=== PATIENT | female | born 1945 | race Two or more races ===

== ENCOUNTER 2025-02-28 13:02 | Emergency (ER) | payer OTHER, MEDICAID ==
[~2025-02-28] VITALS: Ht 149.9 cm; Wt 50.0 kg
[~2025-02-28 13:02] MED LIST: ALEN70TA74 PO; ASPI-325 PO; ATOR20TA50 PO; HYDR200T36 PO; HYDR50TA47 PO; LEFL10TA17 PO; LORA-483 PO; LUBI24CA12 PO; METF-372 PO; METO1TAB9 PO; OMEP-448; [UNRECOGNIZED DRUG - CODE]
--- NOTE | 2025-02-28 13:33 | ED.PDOC ---
Ezekiel. trauma (HPI) HPI Comments 79 y/o F, BIBA, with PMHx of HTN, DM, and HLD presents to the ED for CC of s/p fall. EMS reports, patient is coming from home where she suffered a fall landing on her left shoulder and left wrist. Patient complains, of current pain to her left shoulder and let wrist as result to trauma. Patient denies head injury, l oss of conciseness, abrasions, or open wounds. No other symptoms or modifying factors present at this time. Chief Complaint: Fall Injury Time Seen by MD: 13:00 Primary Care Provider: UNKNOWN Reviewed notes: Nurses Notes, Heel Brusher Notes, Medications, Allergies Allergies: Coded Allergies: NO KNOWN ALLERGIES (Unverified , 05/30/24) Home Meds Reported Medications Atorvastatin Calcium (ATORVASTATIN CALCIUM) 20 Mg Tab, 1 TAB PO DAILY 06/01/24 Omeprazole (Omeprazole Dr) 40 Mg Cap 06/01/24 Lubiprostone (Lubiprostone) 24 Mcg Cap, CAP PO 06/01/24 Leflunomide (Leflunomide) 10 Mg Tab, 1 TAB PO DAILY 06/01/24 Hydroxychloroquine Sulfate (Hydroxychloroquine Sulfat) 200 Mg Tab, 1 TAB PO DAILY 06/01/24 Aspirin (Aspirin Low Dose) 81 Mg Tab, 1 TAB PO DAILY 06/01/24 Metoprolol Succinate (Metoprolol Succinate Er) 100 Mg Tab, 1 TAB PO DAILY 06/01/24 Metformin Hydrochloride (Metformin Hcl) 1,000 Mg Tab, 1 TAB PO BID 06/01/24 Hydralazine Hcl (Hydralazine Hcl) 50 Mg Tab, 1 TAB PO TID 06/01/24 Insulin Pen Needle (Trueplus 5-Bevel Pen Need 32G X 4 mm) 1 Mis Mis 06/01/24 Loratadine (CLARITIN TABLET) 10 Mg Tb, 1 TAB PO DAILY 06/01/24 Alendronate Sodium (Alendronate Sodium) 70 Mg Tab, 1 TAB PO QWEEKLY 06/01/24 Information Source: Patient, Emergency Med Personnel Mode of Arrival: EMS Severity: Moderate Timing: Hours Duration: Since onset Prehospital treatment: None Location: (L) Shoulder, (L) Wrist Location of laceration: None Mechanism: Fall Associated signs and symtoms: None Past Medical History PAST MEDICAL HISTORY: DM, High Lipids, HTN Surgical History: 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 History Family History Family History: Reviewed,noncontributory to illness, No family hx of Cancer, No family hx of DM, No family hx of Heart mira, No family hx of HTN, No family hx ofKidney mira, No family hx of Liver mira, No family hx of Lung mira, No family hx of Stroke Social History Smoker: Non-Smoker Alcohol: Denies ETOH Use Drugs: Denies Drug Use Lives In: Home Constitutional: denies: chills, diaphoresis, fatigue, fever, malaise, sweats, weakness, others EENTM: denies: blurred vision, double vision, ear bleeding, ear discharge, ear drainage, ear pain, ear ringing, eye pain, eye redness, hearing loss, mouth pain, mouth swelling, nasal discharge, nose bleeding, nose congestion, nose pain, photophobia, tearing, throat pain, throat swelling, voice changes, others Respiratory: denies: cough, hemoptysis, orthopnea, SOB at rest, shortness of breath, SOB with excertion, stridor, wheezing, others Cardiovascular: denies: chest pain, dizzy spells, diaphoresis, Dyspnea on exertion, edema, irregular heart beat, left arm pain, lightheadedness, palpitations, PND, syncope, others Gastrointestinal: denies: abdomen distended, abdominal pain, blood streaked bowels, constipated, diarrhea, dysphagia, difficulty swallowing, hematemesis, melena, nausea, poor appetite, poor fluid intake, rectal bleeding, rectal pain, vomiting, others Genitourinary: denies: abnormal vagina bleeding, burning, dyspareunia, dysuria, flank pain, frequency, hematuria, incontinence, pain, , vagina discharge, urgency, others Neurological: denies: dizziness, fainting, headache, left sided numbness, left sided weakness, numbness, paresthesia, pre-existing deficit, right sided numbness, right sided weakness, seizure, speech problems, tingling, tremors, weakness, others Musculoskeletal: reports: others (LEFT SHOULDER AND LEFT WRIST PAIN); denies: back pain, gout, joint pain, joint swelling, muscle pain, muscle stiffness, neck pain Integumetry: denies: bruises, change in color, change in hair/nails, dryness, laceration, lesions, lumps, rash, wounds, others Allergic/Immunocompromised: denies: Difficulty Healing, Frequent Infections, Hives, Itching, others Hematologic/Lymphatic: denies: anemia, blood clots, easy bleeding, easy bruising, swollen glands, others Endocrine: denies: excessive hunger, excessive sweating, excessive thirst, excessive urination, flushing, intolerance to cold, intolerance to heat, unexplained weight gain, unexplained weight loss, others Psychiatric: denies: anxiety, bipolar disorder, depression, hopeless, panic disorder, schizophrenia, sleepless, suicidal, others All Other Systems: Reviewed and Negative Physical Exam General Appearance: Mild Distress HEENT: Normal ENT Inspection, Pharynx Normal, TMs Normal Neck: Full Range of Motion, Non-Tender, Normal, Normal Inspection Respiratory: Chest Non-Tender, Lungs Clear, No Accessory Muscle Use, No Respiratory Distress, Normal Breath Sounds Cardiovascular: No Edema, No JVD, No Murmur, No Gallop, Normal Peripheral Pulses, Regular Rate/Rhythm Breast Exam: Deferred Gastrointestinal: No Organomegaly, Non Tender, No Pulsatile Mass, Normal Bowel Sounds, Soft Genitalia: Deferred Pelvic: Deferred Rectal: Deferred Extremities: No calf tenderness, Normal capillary refill, No pedal edema Musculoskeletal : Location: Left Extremity Location: Wrist Apperance: Swelling, Limited ROM, Tenderness: Moderate Neurologic: Alert, critical power technician II-XII nml as Tested, No Motor Deficits, Normal Affect, Normal Mood, No Sensory Deficits Cerebellar Function: Normal Reflexes: Normal Skin: Dry, Normal Color, Warm Lymphatic: No Adenopathy Was a procedure done? Was a procedure done?: No Differential Diagnosis Multiple Trauma: Fractures, Spine Injury Neck Injury: Cervical Fracture X-Ray, Labs, Meds, VS Vital Signs Date Time Temp Pulse Resp B/P (MAP) Pulse Ox O2 Delivery O2 Flow Rate FiO2 02/28/25 16:18 87 18 97 Room Air* 0 21 02/28/25 15:16 98.2 86 16 229/104 (145) 96 98.2 02/28/25 13:10 98.6 100 18 181/89 (119) 94 98.6 Lab Test 02/28/25 15:27 Range/Units White Blood Count 6.6 4.4-10.8 10^3/uL Red Blood Count 4.25 4.0-5.20 10^6/uL Hemoglobin 12.5 12.2-16.2 g/dL Hematocrit 38.1 36.0-46.0 % Mean Corpuscular Volume 89.8 80.0-100.0 fL Mean Corpuscular Hemoglobin 29.5 28.0-32.0 pg Mean Corpuscular Hemoglobin Concent 32.8 32.0-36.0 g/dL Red Cell Distribution Width 14.1 11.8-14.3 % Platelet Count 160 140-450 10^3/uL Mean Platelet Volume 10.9 H 6.9-10.8 fL Neutrophils (%) (Auto) 67.9 37.0-80.0 % Lymphocytes (%) (Auto) 23.1 10.0-50.0 % Monocytes (%) (Auto) 7.0 0.0-12.0 % Eosinophils (%) (Auto) 1.7 0.0-7.0 % Basophils (%) (Auto) 0.3 0.0-2.0 % Neutrophils # (Auto) 4.5 1.6-8.6 10 ^3/uL Lymphocytes # (Auto) 1.5 0.4-5.4 10 ^3/uL Monocytes # (Auto) 0.5 0-1.3 10 ^3/uL Eosinophils # (Auto) 0.1 0-0.8 10 ^3/uL Basophils # (Auto) 0 0-0.2 10 ^3/uL Nucleated Red Blood Cells 0.0 % Prothrombin Time Pending Prothrombin Time INR Pending Activated Partial Thromboplast Time Pending Sodium Level 146 H 136-145 mmol/L Potassium Level 4.4 3.5-5.1 mmol/L Chloride Level 110 H 98-107 mmol/L Carbon Dioxide Level 25 20-31 mmol/L Anion Gap 11 5-15 Blood Urea Nitrogen 15 9-23 mg/dL Creatinine 0.85 0.550-1.02 mg/dL Glomerular Filtration Rate Calc 69 >90 mL/min BUN/Creatinine Ratio 17.6 10.0-20.0 Serum Glucose 96 74-106 mg/dL Calcium Level 9.9 8.7-10.4 mg/dL L WRIST XR: FINDINGS/IMPRESSION: : Diffuse osteopenia. Displaced fracture of the distal radial metaphysis. LEFT SHOULDER XR: FINDINGS/IMPRESSION: : There is no evidence of acute fracture or dislocation. Soft tissues are unremarkable. The patient had a CBC and chemistry panel that are within normal limits We spoke with the orthopedic surgeon and at this time the patient is being splinted with a sugar-tong splint and a sling. The patient is being discharged and is to follow up with their surgery team on Monday. Images Reviewed?: Images reviewed and evaluated by me Time of 1ST Reevaluation: 13:30 Reevaluation 1ST: Unchanged Time of 2ND Reevaluation: 16:31 Reevaluation 2ND: Improved Patient Education/Counseling: Diagnosis, Treatment, Prognosis, Need For Follow Up Family Education/Counseling: No Family Present Departure 1 Departure Time of Disposition: 16:31 Impression: Primary Impression: Left wrist fracture Qualified Codes: S62.102A - Fracture of unspecified carpal bone, left wrist, initial encounter for closed fracture Disposition: HOME / SELF CARE / HOMELESS Condition: Fair Discharged With: Self Critical Care Note Critical Care Time?: No Stability Stability form required: No Heart Score Heart Score: Heart Score Response (Comments) Value History N/A 0 EKG N/A 0 Age N/A 0 Risk Factors N/A 0 Troponin N/A 0 Total 0 I personally scribed for JOVANNY MORALES MD ([email or web address]) on 02/28/25 at 13:33. Electronically submitted by Vale Powers ([email or web address]). I personally scribed for JOVANNY MORALES MD ([email or web address]) on 02/28/25 at 14:31. Electronically submitted by Vale Powers ([email or web address]). I personally scribed for JOVANNY MORALES MD ([email or web address]) on 02/28/25 at 14:32. Electronically submitted by Vale Powers ([email or web address]). JOVANNY MORALES MD Feb 28, 2025 13:33
--- NOTE | 2025-02-28 14:14 | DVH ---
CLINICAL INDICATION: Trauma, pain TECHNIQUE: XY L SHOULDER 2+ VIEW XRAY Comparison: None FINDINGS/IMPRESSION: : There is no evidence of acute fracture or dislocation. Soft tissues are unremarkable.
--- NOTE | 2025-02-28 14:15 | DVH ---
CLINICAL INDICATION: fall, trauma, pain TECHNIQUE: XY L WRIST 2 VIEW XRAY Comparison: None FINDINGS/IMPRESSION: : Diffuse osteopenia. Displaced fracture of the distal radial metaphysis.
[2025-02-28 15:51] LABS: Potassium 4.4 mmol/L (3.5-5.1)
[2025-02-28 15:52] LABS: Anion Gap 11 (5-15); Basophils # (auto) 0 10 ^3/uL (0-0.2); Basophils % (auto) 0.3 % (0.0-2.0); Calcium 9.9 mg/dL (8.7-10.4); Carbon Dioxide 25 mmol/L (20-31); Eosinophils # (auto) 0.1 10 ^3/uL (0-0.8); Eosinophils % (auto) 1.7 % (0.0-7.0); Hematocrit 38.1 % (36.0-46.0); Hemoglobin 12.5 g/dL (12.2-16.2); Lymphocytes # (auto) 1.5 10 ^3/uL (0.4-5.4); Lymphocytes % (auto) 23.1 % (10.0-50.0); Mean Corpuscular Hemoglobin 29.5 pg (28.0-32.0); Mean Corpuscular Hgb Conc. 32.8 g/dL (32.0-36.0); Mean Corpuscular Volume 89.8 fL (80.0-100.0); Monocytes # (auto) 0.5 10 ^3/uL (0-1.3); Neutrophils # (auto) 4.5 10 ^3/uL (1.6-8.6); Neutrophils % (auto) 67.9 % (37.0-80.0); Platelet Count (auto) 160 10^3/uL (140-450); Red Blood Cells 4.25 10^6/uL (4.0-5.20); Red Cell Distribution Width 14.1 % (11.8-14.3); White Blood Cell 6.6 10^3/uL (4.4-10.8)
[2025-02-28 15:53] LABS: Chloride 110 mmol/L (98-107); Sodium 146 mmol/L (136-145)
[2025-02-28 15:57] LABS: BUN/Creatinine Ratio 17.6 (10.0-20.0); Blood Urea Nitrogen 15 mg/dL (9-23); Glucose 96 mg/dL (74-106)
[2025-02-28 16:18] VITALS: PULSE 87; RESP 18; O2SAT 97
[2025-02-28 16:32] VITALS: TEMP 97.9
[2025-02-28 16:32] LABS: INR 1.03 (0.9-1.15); Partial Thromboplastin Time 24.5 SEC (24.5-34.5); Prothrombin Time 10.9 sec (9.3-11.8)
[2025-02-28] MEDS: hydrALAZINE HCL 20 MG/ML VL IV ONE (16:38)
[2025-02-28] MEDS: cloNIDine HCL 0.1 MG TAB PO ONE (16:41)
[2025-02-28 17:24] VITALS: BP 184/73; PULSE 79; RESP 16; O2SAT 97
== END 2025-02-28 17:24 | disposition home or self-care (01) ==
LOC: EDBD 13:02 → EDUNIT# 13:02 → ER 13:02
DX: S52.502A Unspecified fracture of the lower end of left radius, initial encounter for closed fracture (principal); I10 Essential (primary) hypertension; E78.5 Hyperlipidemia, unspecified; E11.9 Type 2 diabetes mellitus without complications; Z79.899 Other long term (current) drug therapy; Z86.2 Personal history of diseases of the blood and blood-forming organs and certain disorders involving the immune mechanism; W19.XXXA Unspecified fall, initial encounter; Y93.89 Activity, other specified; Y92.89 Other specified places as the place of occurrence of the external cause; Y99.8 Other external cause status
CPT/HCPCS: 29125; 36415; 73030; 73100; 80048; 85025; 85610; 85730; 99284; J0360